=== PATIENT | female | born 1950 | race Caucasian/White ===

== ENCOUNTER 2016-10-31 14:42 | Emergency (ER) | payer BC ==
[2016-10-31 15:21] VITALS: BP 136/67; PULSE 78; RESP 19; TEMP 98.4; O2SAT 99
--- NOTE | 2016-10-31 15:35 | ED PDOC ---
HPI: Headache Time Seen by Provider: 10/31/16 15:25 Chief Complaint (Provider): Headache History Per: Patient History/Exam Limitations: no limitations Onset/Duration Of Symptoms: Days (3) Current Symptoms Are (Timing): Still Present Severity: Moderate Additional Complaint(s): Lisa Gage is a 65 y/o female presenting to the ER on 10/31/2016 with complaints of a headache, dizziness, and neck pain for three days. Patient reports falling off a ladder to her bunk bed three days ago. She states she fell backwards and hit her head on the ground. At the time, she did not experience any lost of consciousness. However, she is complaining today of dizziness, neck pain, and headaches. She denies any weakness or paresthesia. Past Medical History Reviewed: Historical Data, Nursing Documentation, Vital Signs Vital Signs: Last Vital Signs Temp 98.4 F 10/31/16 15:18 Pulse 78 10/31/16 15:18 Resp 19 10/31/16 15:18 BP 136/67 10/31/16 15:18 Pulse Ox 99 10/31/16 15:18 - Medical History PMH: Asthma - Surgical History Surgical History: No Surg Hx - Family History Family History: States: Unknown Family Hx - Social History Current smoker - smoking cessation education provided: No Alcohol: None Drugs: Denies - Home Medications Home Medications: Ambulatory Orders Medication Instructions Recorded Cyclobenzaprine HCl [Flexeril] 10 mg PO TID #21 tab 12/16/14 Naproxen 500 mg PO Q12 #20 tab 12/16/14 Naproxen [Naprosyn] 500 mg PO Q12H #20 tab 10/31/16 - Allergies Allergies/Adverse Reactions: Allergies Allergy/AdvReac Type Severity Reaction Status Date / Time codeine AdvReac DIARRHEA Verified 10/31/16 15:14 Review of Systems ROS Statement: Except As Marked, All Systems Reviewed And Found Negative Cardiovascular: Negative for: Light Headedness Musculoskeletal: Positive for: Neck Pain Neurological: Positive for: Headache, Dizziness, Other ((-) paraesthesia ). Negative for: Weakness Physical Exam - Reviewed Nursing Documentation Reviewed: Yes Vital Signs Reviewed: Yes - Physical Exam Appears: Positive for: Non-toxic, No Acute Distress Head Exam: Positive for: ATRAUMATIC, NORMOCEPHALIC Skin: Positive for: Normal Color. Negative for: Rash Eye Exam: Positive for: Normal appearance, EOMI, PERRL Neck: Positive for: Normal (no spinal tenderness or deformity), Painless ROM, Supple Cardiovascular/Chest: Positive for: Regular Rate, Rhythm. Negative for: Murmur Respiratory: Positive for: Normal Breath Sounds. Negative for: Wheezing, Respiratory Distress Gastrointestinal/Abdominal: Positive for: Normal Exam, Soft. Negative for: Tenderness Back: Positive for: Normal Inspection (no spinal tenderness or deformity). Negative for: L CVA Tenderness, R CVA Tenderness, Vertebral Tenderness Extremity: Positive for: Normal ROM. Negative for: Tenderness, Deformity Neurologic/Psych: Positive for: Alert, Oriented, Other (no focal deficits ). Negative for: Motor/Sensory Deficits - ECG O2 Sat by Pulse Oximetry: 99 Medical Decision Making Medical Decision Makin:25 Initial Impression- 65 y/o female with headaches, dizziness, and neck pain s/p fall Initial Plan- * CT Cervical Spine w/o contrast * CT Head w/o contrast * Re-evaluate Documented by Alvin Vu, acting as a scribe for Pedro Sanchez MD. All medical record entries made by the Scribe were at my direction and personally dictated by me. I have reviewed the chart and agree that the record accurately reflects my personal performance of the history, physical exam, medical decision making, and the department course for this patient. I have also personally directed, reviewed, and agree with the discharge instructions and disposition. Disposition - Clinical Impression Clinical Impression: Head injury, Neck pain - Patient ED Disposition Is Patient to be Admitted: No - Disposition Referrals: [facility] [Outside] Disposition: Routine/Home Disposition Time: 17:50 Condition: FAIR Prescriptions: Naproxen [Naprosyn] 500 mg PO Q12H #20 tab Instructions: Head Injury (ED), Concussion (ED), Cervical Sprain (ED) Print Language: AMERICAN
--- NOTE | 2016-10-31 17:26 | CT ---
PROCEDURE: CT HEAD WITHOUT CONTRAST. HISTORY: r/o bleed COMPARISON: None available. TECHNIQUE: Axial computed tomography images were obtained through the head/brain without intravenous contrast. Radiation dose: Total exam DLP = 1172.07 mGy-cm. This CT exam was performed using one or more of the following dose reduction techniques: Automated exposure control, adjustment of the mA and/or kV according to patient size, and/or use of iterative reconstruction technique. FINDINGS: HEMORRHAGE: No acute parenchymal, subarachnoid or extra-axial hemorrhage. BRAIN: No evidence of large acute infarct. No focal parenchymal nor extra-axial masses or collections identified on this noncontrast study. Ventricular and sulcal size are within range of normal for this patient's stated age. Minor vascular calcifications are present. VENTRICLES: No evidence of obstructive hydrocephalus. CALVARIUM: Calvarium appears grossly intact. PARANASAL SINUSES: Frontal sinuses are hypoplastic. Remaining visualized paranasal sinuses well-developed and currently well-aerated. No fluid levels seen to suggest acute hemorrhage or sinusitis. MASTOID AIR CELLS: Unremarkable as visualized. No inflammatory changes. OTHER FINDINGS: Note made of a small approximately 4 mm elliptical shaped calcification which appears to be located on the superior surface of the left tentorial leaf. This could represent a simple dural base calcification however the possibility of a very tiny incidental meningioma calcified meningioma cannot be completely excluded. . Followup nonemergent pre and post-contrast MRI of the brain could be performed further evaluation if clinically indicated. . IMPRESSION: No acute intracranial hemorrhage. Note made of a small approximately 4 mm elliptical shaped calcification which appears to be located on the superior surface of the left tentorial leaf. This could represent a simple dural base calcification however the possibility of a very tiny incidental meningioma calcified meningioma cannot be completely excluded. . Followup nonemergent pre and post-contrast MRI of the brain could be performed further evaluation if clinically indicated.
--- NOTE | 2016-10-31 17:47 | CT ---
PROCEDURE: CT Cervical Spine without contrast HISTORY: Trauma COMPARISON: None available. TECHNIQUE: Axial computed tomography images were obtained of the cervical spine without the use of intravenous contrast. Coronal and sagittal reformatted images were created and reviewed. Radiation dose: Total exam DLP = 662.4 mGy-cm. This CT exam was performed using one or more of the following dose reduction techniques: Automated exposure control, adjustment of the mA and/or kV according to patient size, and/or use of iterative reconstruction technique. FINDINGS: VERTEBRAE: No acute compression fractures no retropulsed fragments. . Vertebral bodies exhibit relatively normal stature. Minor anterior subluxation C7 over T1. Remaining vertebral bodies otherwise exhibit normal alignment. Facets normally aligned. DISCS/SPINAL CANAL/NEURAL FORAMINA: Multilevel degenerative spondylosis. At the C2-C3 level, there is adequate disc height. Minimal central and bilateral disc bulge indents the ventral surface of the thecal sac nearly reaching but not significantly compressing the ventral surface of the cord. Central canal appears and at exit foramina appear adequate. At the C3-C4 level, there is relatively adequate disc height. Small focal central and bilateral disc bulge indents the ventral surface of the thecal sac and minimally indents the ventral surface of cord. Central canal is marginal to slightly narrowed. Exit foramina appear adequate. At the C4-C5 level, there is relatively adequate disc height. Small central and bilateral disc bulge also indents the ventral surface of the thecal sac reaching but not significantly compressing the ventral surface of the cord. Central canal appears adequate. Left facet joint is hypertrophic. The uncovertebral joints also mildly hypertrophic. Exit foramina are marginal to minimally narrowed. At the C5-C6 level, there is minor disc space narrowing. Small broad-based disc bulge ridge complex contiguous with mildly hypertrophic uncovertebral joints left larger than right. The left facet is also hypertrophic. The central canal appears adequate. Exit foramina are narrowed bilaterally left greater than right. Similar changes seen at the C6-C7 level. Slight anterior subluxation C7-T1 level. PARASPINAL SOFT TISSUES: Unremarkable. OTHER FINDINGS: None. IMPRESSION: No acute fractures. Mild multilevel degenerative spondylosis as detailed above. Slight anterior subluxation C7 over T1.
== END 2016-10-31 17:51 | disposition home or self-care (01) ==
LOC: H.ER 14:42
DX: S09.90XA Unspecified injury of head, initial encounter (principal); M54.2 Cervicalgia; W11.XXXA Fall on and from ladder, initial encounter; Y92.003 Bedroom of unspecified non-institutional (private) residence as the place of occurrence of the external cause

== ENCOUNTER 2018-07-29 17:35 | Observation (INO) | payer BC, MEDICARE ==
[2018-07-29 17:35] VITALS: BMI 26.7
[2018-07-29] MEDS ORDERED: Lidocaine 5% Patch TD STA (19:34)
--- NOTE | 2018-07-29 19:48 | ED PDOC ---
HPI: Back Time Seen by Provider: 07/29/18 19:18 Chief Complaint (Nursing): Back Pain Chief Complaint (Provider): Back Pain History Per: Patient History/Exam Limitations: no limitations Onset/Duration Of Symptoms: Days (x14) Current Symptoms Are (Timing): Still Present Additional Complaint(s): 67 y/o female with a PMHx of Asthma and Chronic Low Back Pain presents to the ED for evaluation of low back pain, onset two weeks ago. Patient reports of being diagnosed with Degenerative Disk Disease and herniated disks in L3, L4 and L5 and is scheduled for a surgical fusion in 2 weeks. Patient notes pain is increasing worsening since onset. Patient reports of taking diclofenac and tramadol with no relief of symptoms. Patient states she is unable to sleep due to pain. Patient reports that while en route to hospital she fell on her back. Patient notes pain radiates down the left buttock and left leg. Patient additionally reports of developing numbness and tingling down both legs (left > right). Otherwise, patient denies urinary retention or incontinence, fecal retention or incontinence and saddle anesthesias. PMD: Wu Suarez Past Medical History Reviewed: Historical Data, Nursing Documentation, Vital Signs Vital Signs: Last Vital Signs Temp 98.3 F 07/29/18 18:16 Pulse 86 07/29/18 18:16 Resp 16 07/29/18 18:16 BP 153/74 H 07/29/18 18:16 Pulse Ox 100 07/29/18 18:16 - Medical History PMH: Asthma, Back Problems, COPD, Chronic Pain (LOW BACK PAIN) Denies: Crohn's Disease, Diverticulitis, Gastritis, Gall Bladder Disease, HIV, Pancreatitis, Chronic Kidney Disease Other PMH: Degenerative Disk Disease and Herniated Disks - Surgical History Surgical History: Cholecystectomy Other surgeries: Tubal Ligation - Family History Family History: States: Unknown Family Hx - Immunization History Hx Tetanus Toxoid Vaccination: No Hx Influenza Vaccination: No Hx Pneumococcal Vaccination: Yes (4-years ago) - Home Medications Home Medications: Ambulatory Orders Medication Instructions Recorded traMADol [Ultram] 50 mg PO BID 09/06/17 Albuterol Sulfate [Proair 90 mcg IH Q6H PRN #1 [email or web address] 09/09/17 Respiclick] Famotidine [Pepcid] 20 mg PO DAILY #30 tab 09/09/17 Fluticasone/Salmeterol [Advair 1 each IH Q12H #1 blst.w.dev 09/09/17 250-50 Diskus] - Allergies Allergies/Adverse Reactions: Allergies Allergy/AdvReac Type Severity Reaction Status Date / Time codeine AdvReac DIARRHEA Verified 07/29/18 18:14 Review of Systems ROS Statement: Except As Marked, All Systems Reviewed And Found Negative Genitourinary Female: Negative for: Incontinence (fecal and urinary), Other (fecal and urinary retention) Musculoskeletal: Positive for: Back Pain (low), Leg Pain Neurological: Positive for: Numbness (and tingling in the bilateral legs) Physical Exam - Reviewed Nursing Documentation Reviewed: Yes Vital Signs Reviewed: Yes - Physical Exam Appears: Positive for: Uncomfortable Head Exam: Positive for: ATRAUMATIC, NORMOCEPHALIC Skin: Positive for: Normal Color, Warm, Dry Eye Exam: Positive for: Normal appearance, EOMI, PERRL Neck: Positive for: Normal, Painless ROM Cardiovascular/Chest: Positive for: Regular Rate, Rhythm. Negative for: Murmur Respiratory: Positive for: Normal Breath Sounds. Negative for: Respiratory Distress Gastrointestinal/Abdominal: Positive for: Normal Exam, Soft. Negative for: Tenderness Back: Negative for: L CVA Tenderness, R CVA Tenderness, Vertebral Tenderness Extremity: Positive for: Normal ROM, Other (Unable to perform leg raise due to being uncomfortable. ). Negative for: Deformity Neurological/Psych: Positive for: Awake, Alert, Oriented. Negative for: Motor/Sensory Deficits, Other - ECG O2 Sat by Pulse Oximetry: 100 (RA) Pulse Ox Interpretation: Normal Medical Decision Making Medical Decision Making: Time: 1933 Impression: 67 y/o female with acute on chronic low back pain -- Trial IV of Morphine -- Valium -- Imaging ordered due to fall -- CT Lumbar Spine w/o Contrast -- CMP -- CBC with Differentials -- Lidoderm 1 ea TD -- Morphine 2 mg IVP -- Valium 5 mg PO -- Heplock Insertion Time: 2012 CT LUMBAR RESULTS History: Fall. Back pain. Comparison: None Technique: CT examination lumbosacral spine. CT examination lumbosacral spine was made using thin axial sections. Images were reconstructed in the coronal sagittal planes. There is straightening of the lumbar spine. Vertebral body stature is maintained throughout. There is diffuse advanced hypertrophic and degenerative change with disc space narrowing at all levels within the lumbar spine worse at the L5-S1 level. L1-L2 level posterior spurring the vertebral bodies. Posterior disc bulge present. L2-L3 level bony spurring posterior vertebral bodies. Posterior disc bulge present. L3-L4 level bony spurring of vertebral bodies without roly disc herniation. Neural foramen mildly narrowed. L4-L5 level small posterior disc herniation associated bony spurring. Neuroforamina are mildly narrowed. L5-S1 level small posterior disc herniation. Neural foramina appear narrowed. Spinal cord itself appears within normal limits. Spinal canal appears preserved. Impression: Diffuse advanced hypertrophic and degenerative change with chronic disc disease at all levels within the lumbar spine worse at the L5-S1 level. P osterior bulging disc associated bony spurring multiple levels. Small posterior disc herniations suspected at the L4-L5 and L5-S1 levels. Clinical correlation advised. Electronically signed on Jul 29, 2018 8:13:32 PM EDT by: Costa Power M.D., Certified by [employer], Diagnostic Radiology Scribe Attestation: Documented by Sully Noble, acting as a scribe Nigel Macias MD. Provider Scribe Attestation: All medical record entries made by the Scribe were at my direction and personally dictated by me. I have reviewed the chart and agree that the record accurately reflects my personal performance of the history, physical exam, medical decision making, and the department course for this patient. I have also personally directed, reviewed, and agree with the discharge instructions and disposition. Disposition - Clinical Impression Clinical Impression: Back pain - Disposition Disposition Time: 07:00 Condition: STABLE Forms: [employer] (Romansh)
[2018-07-29] MEDS ORDERED: Lidocaine 5% Patch TD ONE (20:01)
[2018-07-29 21:08] LABS: BASO % 0.7 % (0.0-2.0); EOS # 0.2 K/uL (0.0-0.7); EOS % 3.8 % (0.0-4.0); HEMOGLOBIN 13.2 g/dL (12.0-16.0); LYMPH # 1.6 K/uL (1.0-4.3); LYMPH % 34.3 % (20.0-40.0); MEAN CORPUSCULAR HEMOGLOBIN 30.7 pg (27.0-31.0); MEAN CORPUSCULAR HGB CONC 33.4 g/dL (33.0-37.0); MEAN PLATELET VOLUME 6.5 fl (7.2-11.7); MONO # 0.5 K/uL (0.0-0.8); NEUT # 2.4 K/uL (1.8-7.0); NEUT % 51.2 % (50.0-75.0); NRBC % 0.2 % (0.0-0.0); RBC 4.29 Mil/uL (3.80-5.20); RED CELL DISTRIBUTION WIDTH 13.7 % (11.5-14.5); WHITE BLOOD COUNT 4.7 K/uL (4.8-10.8)
[2018-07-29 21:18] LABS: ALB/GLOB RATIO 1.2 (1.0-2.1); ALBUMIN 3.8 g/dL (3.5-5.0); ALT/SGPT 48 U/L (9-52); AST/SGOT 31 U/L (14-36); BLOOD UREA NITROGEN 13 mg/dl (7-17); CALCIUM 9.2 mg/dL (8.4-10.2); GFR NON-AFRICAN AMERICAN > 60
[2018-07-29] MEDS ORDERED: Morphine 4 MG/ML VIAL IVP PRN (23:16)
--- NOTE | 2018-07-29 23:19 | CP.PCM.HP ---
<Shereen Lopez - Last Filed: 07/30/18 01:31> History of Present Illness - History of Present Illness History of Present Illness: 67 yo F with past med hx asthma and chronic low back pain due to disk herniations admitted due to intractable back pain. Patient presented to ED for evaluation of low back pain, onset two weeks ago. She reports that she has been diagnosed with herniated disks in her lower back and has seen statuary painter (Dr. Mcclellan) and spinal surgeon (Dr. Emanuel Kumar) with planned spinal surgery in the coming month, however unsure in which hospital. She states that this past week her pain got much worse and she could not tolerate it anymore and came to ED. States she takes tramadol at home, 50 mg tablets, and has been taking 2 at a time two times a day without relief. States she has been unable to sleep because of pain. Rates pain 10/10 on admission, and 8/10 after receiving 2 gm morphine in ED. Pain is located in mid lumbar area, travels down left leg. States she has developing numbness in left leg. Denies loss of bladder/bowel function or any saddle anesthesia. She states her pain is not aggravated by anything specific but feels like putting some pr essure on the area helps minimally. Denies chest pain, shortness of breath, abdominal pain, urinary/bowel issues. Of note, patient states that while in en route to the hospital she was getting out of the car and misstepped and fell on her left side. No LOC, no trauma to head, no dizziness/vertigo. PMD: Wu Patel Past Med hx: asthma, sciatica, herniated disks Past Surg hx: , cholecystectomy, BTL, left shoulder surgery Family hx: htn Social hx: former smoker (quit 10-15 yrs ago), denies alcohol/drug use Allergies: codeine (states she gets low blood pressure) Meds: albuterol inhaler (uses less than 1x a mo usually), tramadol 50 mg BID daily IN ED: Vitals stable: BP 153/74, HR 86, T 98.3, RR 16, O2 sat 100 Labs: CBC and CMP grossly unremarkable CT lumbar spine taken; prelim read: Impression: Diffuse advanced hypertrophic and degenerative change with chronic disc disease at all levels within the lumbar spine worse at the L5-S1 level. Posterior bulging disc associated bony spurring multiple levels. Small posterior disc herniations suspected at the L4- L5 and L5-S1 levels. Clinical correlation advised. Received 2 mg morphine, lidocaine patch, and 5 mg valium. Present on Admission - Present on Admission Any Indicators Present on Admission: No Review of Systems - Review of Systems Review of Systems: as per hpi Past Patient History - Past Medical History & Family History Past Medical History?: Yes - Past Social History Smoking Status: Former Smoker Alcohol: None Drugs: Denies - CARDIAC Hx Cardiac Disorders: No - PULMONARY Hx Asthma: Yes - NEUROLOGICAL Hx Neurological Disorder: No - HEENT Hx HEENT Problems: No - RENAL Hx Chronic Kidney Disease: No - ENDOCRINE/METABOLIC Hx Endocrine Disorders: No - HEMATOLOGICAL/ONCOLOGICAL Hx Human Immunodeficiency Virus (HIV): No - INTEGUMENTARY Hx Dermatological Problems: No - MUSCULOSKELETAL/RHEUMATOLOGICAL Hx Musculoskeletal Disorders: Yes Hx Degenerative Joint Disease: Yes (Cervical/left shoulder) Hx Falls: No Hx Herniated Disk: Yes - GASTROINTESTINAL Hx Crohn's Disease: No Hx Diverticulitis: No Hx Gall Bladder Disease: No Hx Gastritis: No Hx Pancreatitis: No - GENITOURINARY/GYNECOLOGICAL Hx Genitourinary Disorders: No - PSYCHIATRIC Hx Psychophysiologic Disorder: No Hx Substance Use: No - SURGICAL HISTORY Hx Section: Yes Hx Cholecystectomy: Yes Other/Comment: BTL, shoulder surgery - ANESTHESIA Hx Anesthesia: Yes Hx Anesthesia Reactions: No Meds Allergies/Adverse Reactions: Allergies Allergy/AdvReac Type Severity Reaction Status Date / Time codeine AdvReac DIARRHEA Verified 07/29/18 18:14 Physical Exam - Constitutional Appears: Non-toxic Additional comments: uncomfortable, crying - Head Exam Head Exam: NORMAL INSPECTION - Eye Exam Eye Exam: Normal appearance - ENT Exam ENT Exam: Mucous Membranes Moist - Respiratory Exam Respiratory Exam: Clear to Auscultation Bilateral, NORMAL BREATHING PATTERN. absent: Respiratory Distress - Cardiovascular Exam Cardiovascular Exam: REGULAR RHYTHM, +S1, +S2 - GI/Abdominal Exam GI & Abdominal Exam: Normal Bowel Sounds, Soft. absent: Tenderness - Extremities Exam Extremities exam: Positive for: normal inspection. Negative for: calf tenderness, pedal edema Additional comments: + straight leg on LEFT - Neurological Exam Neurological exam: Alert, Oriented x3 - Psychiatric Exam Psychiatric exam: Anxious, Normal Affect - Skin Skin Exam: Dry, Warm Results - Vital Signs Recent Vital Signs: Last Vital Signs Temp 98.3 F 07/29/18 18:16 Pulse 86 07/29/18 18:16 Resp 16 07/29/18 18:16 BP 153/74 H 07/29/18 18:16 Pulse Ox 100 07/29/18 20:33 - Labs Result Diagrams: 07/29/18 20:55 07/29/18 20:55 Labs: Laboratory Results - last 24 hr 07/29/18 07/29/18 20:55 20:55 WBC 4.7 L RBC 4.29 Hgb 13.2 Hct 39.5 MCV 92.0 MCH 30.7 MCHC 33.4 RDW 13.7 Plt Count 233 MPV 6.5 L Neut % (Auto) 51.2 Lymph % (Auto) 34.3 Dougherty % (Auto) 10.0 Eos % (Auto) 3.8 Baso % (Auto) 0.7 Neut # (Auto) 2.4 Lymph # (Auto) 1.6 Dougherty # (Auto) 0.5 Eos # (Auto) 0.2 Baso # (Auto) 0.0 Sodium 142 Potassium 4.4 Chloride 105 Carbon Dioxide 29 Anion Gap 12 BUN 13 Creatinine 0.6 L Est GFR ( Amer) > 60 Est GFR (Non-Af Amer) > 60 Random Glucose 103 Calcium 9.2 Total Bilirubin 0.5 AST 31 ALT 48 Alkaline Phosphatase 95 Total Protein 6.9 Albumin 3.8 Globulin 3.1 Albumin/Globulin Ratio 1.2 Assessment & Plan - Assessment and Plan (Free Text) Assessment: 67 yo F with PMH asthma and diffuse advanced hypertrophic and degenerative spinal changes and chronic disc disease at all levels within the lumbar spine, admitted due to intractable back pain. Plan: Intractable Back Pain - Likely due to diffuse advanced hypertrophic and degenerative spinal changes with chronic disc disease at all levels within the lumbar spine; seen on CT scan - Pain control - Pain management consult Asthma - Well controlled - Albuterol Q6 PRN Diet - Regular diet Prophylaxis - Pepcid - SCDs for now Pt seen/examined with Dr. Roach. <Alcon Roach - Last Filed: 07/30/18 05:37> Results - Vital Signs Recent Vital Signs: Last Vital Signs Temp 98.3 F 07/30/18 03:24 Pulse 76 07/30/18 04:00 Resp 18 07/30/18 04:00 BP 127/66 07/30/18 03:24 Pulse Ox 98 07/30/18 04:00 - Labs Result Diagrams: 07/29/18 20:55 07/29/18 20:55 Labs: Laboratory Results - last 24 hr 07/29/18 07/29/18 20:55 20:55 WBC 4.7 L RBC 4.29 Hgb 13.2 Hct 39.5 MCV 92.0 MCH 30.7 MCHC 33.4 RDW 13.7 Plt Count 233 MPV 6.5 L Neut % (Auto) 51.2 Lymph % (Auto) 34.3 Dougherty % (Auto) 10.0 Eos % (Auto) 3.8 Baso % (Auto) 0.7 Neut # (Auto) 2.4 Lymph # (Auto) 1.6 Dougherty # (Auto) 0.5 Eos # (Auto) 0.2 Baso # (Auto) 0.0 Sodium 142 Potassium 4.4 Chloride 105 Carbon Dioxide 29 Anion Gap 12 BUN 13 Creatinine 0.6 L Est GFR ( Amer) > 60 Est GFR (Non-Af Amer) > 60 Random Glucose 103 Calcium 9.2 Total Bilirubin 0.5 AST 31 ALT 48 Alkaline Phosphatase 95 Total Protein 6.9 Albumin 3.8 Globulin 3.1 Albumin/Globulin Ratio 1.2 Attending/Attestation - Attestation I have personally seen and examined this patient.: Yes I have fully participated in the care of the patient.: Yes I have reviewed all pertinent clinical information: Yes Notes (Text): 07/30/18 05:25 I saw, examined and discussed this patient with Dr Lopez. The assessment and plan outlined above reflect my direct input. This is a 67 years with hx of chronic back pain, comes with worsening pain to the back radiating down the left leg over the past week. She is due for back surgery in August of 2018 but came because of the intensity of the pain. We will treat and control the intractable lower back pain and Sciatica of chronic degenerative lumbar disc disease and herniation, with Morphine and Tramadol. We will consult with pain management. Alcno Roach MD
[2018-07-30 08:25] VITALS: BP 146/84; PULSE 72; RESP 20; TEMP 97.9; O2SAT 100
[2018-07-30 08:58] LABS: BLOOD UREA NITROGEN 20 mg/dl (7-17); CALCIUM 8.9 mg/dL (8.4-10.2); GFR NON-AFRICAN AMERICAN > 60
--- NOTE | 2018-07-30 10:06 | CP.PCM.DIS ---
Provider - Provider Date of Admission: 07/29/18 21:23 Attending physician: Alcon Roach Primary care physician: Dr. Suarez Consults: none Time Spent in preparation of Discharge (in minutes): 20 Hospital Course - Lab Results Lab Results: Most Recent Lab Values WBC 4.7 K/uL (4.8-10.8) L 07/29/18 20:55 RBC 4.29 Mil/uL (3.80-5.20) 07/29/18 20:55 Hgb 13.2 g/dL (12.0-16.0) 07/29/18 20:55 Hct 39.5 % (34.0-47.0) 07/29/18 20:55 MCV 92.0 fl (81.0-99.0) 07/29/18 20:55 MCH 30.7 pg (27.0-31.0) 07/29/18 20:55 MCHC 33.4 g/dL (33.0-37.0) 07/29/18 20:55 RDW 13.7 % (11.5-14.5) 07/29/18 20:55 Plt Count 233 K/uL (130-400) 07/29/18 20:55 MPV 6.5 fl (7.2-11.7) L 07/29/18 20:55 Neut % (Auto) 51.2 % (50.0-75.0) 07/29/18 20:55 Lymph % (Auto) 34.3 % (20.0-40.0) 07/29/18 20:55 [place] % (Auto) 10.0 % (0.0-10.0) 07/29/18 20:55 Eos % (Auto) 3.8 % (0.0-4.0) 07/29/18 20:55 Baso % (Auto) 0.7 % (0.0-2.0) 07/29/18 20:55 Neut # (Auto) 2.4 K/uL (1.8-7.0) 07/29/18 20:55 Lymph # (Auto) 1.6 K/uL (1.0-4.3) 07/29/18 20:55 [place] # (Auto) 0.5 K/uL (0.0-0.8) 07/29/18 20:55 Eos # (Auto) 0.2 K/uL (0.0-0.7) 07/29/18 20:55 Baso # (Auto) 0.0 K/uL (0.0-0.2) 07/29/18 20:55 Sodium 139 mmol/l (132-148) 07/30/18 06:30 Potassium 4.1 MMOL/L (3.6-5.0) 07/30/18 06:30 Chloride 104 mmol/L (98-107) 07/30/18 06:30 Carbon Dioxide 30 mmol/L (22-30) 07/30/18 06:30 Anion Gap 9 (10-20) L 07/30/18 06:30 BUN 20 mg/dl (7-17) H 07/30/18 06:30 Creatinine 0.7 mg/dl (0.7-1.2) 07/30/18 06:30 Est GFR ( Amer) > 60 07/30/18 06:30 Est GFR (Non-Af Amer) > 60 07/30/18 06:30 Random Glucose 91 mg/dL (65-105) 07/30/18 06:30 Calcium 8.9 mg/dL (8.4-10.2) 07/30/18 06:30 Total Bilirubin 0.5 mg/dl (0.2-1.3) 07/29/18 20:55 AST 31 U/L (14-36) 07/29/18 20:55 ALT 48 U/L (9-52) 07/29/18 20:55 Alkaline Phosphatase 95 U/L (38-126) 07/29/18 20:55 Total Protein 6.9 G/DL (6.3-8.2) 07/29/18 20:55 Albumin 3.8 g/dL (3.5-5.0) 07/29/18 20:55 Globulin 3.1 gm/dL (2.2-3.9) 07/29/18 20:55 Albumin/Globulin Ratio 1.2 (1.0-2.1) 07/29/18 20:55 - Hospital Course Hospital Course: 67 yo F with PMH asthma and chronic low back pain due to disk herniations admitted due to intractable back pain. She stated that was not able to sleep. Denied any saddle anesthesia, bowel or urinary incontinence. She was placed under observation in med/surg for sciatica and intractable low back pain . Given Morphine IV with good response. Today she feels mucghbetter. Will discharge patient home with follow upw ith her spine surgeon, pain management doctor and PMD Dr. Suarez She has been scheduled for spinal surgery at the end of August D/c patient home Dx 1.Intractable low back pain secondary to herniate disc and sciatica Discharge Exam - Head Exam Head Exam: NORMAL INSPECTION - Eye Exam Eye Exam: EOMI, Normal appearance, PERRL Pupil Exam: NORMAL ACCOMODATION - ENT Exam ENT Exam: Mucous Membranes Moist, Normal Exam - Neck Exam Neck exam: Full Rom - Respiratory Exam Respiratory Exam: Clear to PA & Lateral, NORMAL BREATHING PATTERN. absent: Rhonchi, Wheezes, Respiratory Distress - Cardiovascular Exam Cardiovascular Exam: REGULAR RHYTHM, RRR, +S1, +S2. absent: JVD - GI/Abdominal Exam GI & Abdominal Exam: Normal Bowel Sounds, Soft. absent: Distended, Guarding, Rebound, Tenderness - Rectal Exam Rectal Exam: Deferred - Extremities Exam Extremities exam: normal capillary refill, normal inspection, pedal pulses present - Back Exam Back exam: NORMAL INSPECTION - Neurological Exam Neurological exam: Alert, CN II-XII Intact, Oriented x3, Reflexes Normal - Psychiatric Exam Psychiatric exam: Normal Affect, Normal Mood - Skin Skin Exam: Dry, Intact, Normal Color, Warm Discharge Plan - Follow Up Plan Condition: STABLE Disposition: HOME/ ROUTINE Patient education suggested?: Yes Instructions: Sciatica (DC) Referrals: Wu Suarez MD [Family Provider] -
--- NOTE | 2018-07-30 13:16 | CT ---
Date of service: 07/29/2018 PROCEDURE: CT Lumbar Spine without contrast HISTORY: Pain COMPARISON: None available. TECHNIQUE: Axial computed tomography images were obtained of the lumbar spine without the use of intravenous contrast. Coronal and sagittal reformatted images were created and reviewed. Radiation dose: Total exam DLP = 587.43 mGy-cm. This CT exam was performed using one or more of the following dose reduction techniques: Automated exposure control, adjustment of the mA and/or kV according to patient size, and/or use of iterative reconstruction technique. FINDINGS: VERTEBRAE: No evidence of acute compression fractures no retropulsed fragments. Vertebral bodies exhibit normal stature of. Vertebral bodies and facets normally aligned. DISCS/SPINAL CANAL/NEURAL FORAMINA: L1-2: Marked disc space narrowing with vacuum disc phenomena. Small irregular disc herniation ridge results in mild compressive effects on the thecal sac bilaterally.. There also appears to be some inferior subligamentous extension of disc over short distance within the right anterolateral aspect of the canal dorsal to the superior aspect of the L2 segment. Disc extends slightly into the proximal inferior margins of both exit foramina however exit foramina adequate L2-3: Disc space narrowing more so along the posterior disc margin. Small amount of vacuum disc phenomena present. Broad-based disc herniation ridge complex larger on the right than left also compresses the ventral surface of the thecal sac.. Disc also extends into the proximal inferior margins of both exit foramina however exit foramina adequate L3-4: Disc desiccation and disc space narrowing more so along the posterior disc margin with vacuum disc phenomena. Small broad-based disc ridge complex mildly compress the ventral surface of the thecal sac. L4-5: Disc desiccation and disc space narrowing and vacuum disc phenomena.. Broad-based disc ridge complex compresses the ventral surface of the thecal sac. Exit foramina appear adequate. L5-S1: Disc desiccation and disc space narrowing with vacuum disc phenomena. Central and bilateral disc bulge flattens the ventral surface of the thecal sac. Facets are hypertrophic. Exit foramina stenotic bilaterally. PARASPINAL SOFT TISSUES: Unremarkable. OTHER FINDINGS: None. IMPRESSION: No acute fractures. Multilevel degenerative spondylosis with small disc herniation seen at several levels mentioned above. The exit foramina are also quite stenotic the L5-S1 level bilaterally
== END 2018-07-30 14:50 | disposition home or self-care (01) ==
LOC: H.ER 17:35 → H.ERHOLD 21:23 → H.MEDSURG1 07-30 03:32
PROVIDERS: ADMIT Internal Medicine; ATTEND Internal Medicine
DX: M51.17 Intervertebral disc disorders with radiculopathy, lumbosacral region (principal); M51.37 Other intervertebral disc degeneration, lumbosacral region; R20.2 Paresthesia of skin; Z87.891 Personal history of nicotine dependence; J44.9 Chronic obstructive pulmonary disease, unspecified; Z88.6 Allergy status to analgesic agent; R20.0 Anesthesia of skin
CPT/HCPCS: 36415; 72131; 80048; 80053; 85025; 96374; 96375; 96376; 99285; C9113; G0378; J2270; J2405